=== PATIENT | female | born 1995 | race Caucasian/White ===

== ENCOUNTER 2018-12-13 10:15 | Emergency (ER) | payer MEDICAID ==
[~2018-12-13] VITALS: Ht 149.9 cm; Wt 43.2 kg
[2018-12-13 10:34] VITALS: BP 115/55; PULSE 112; RESP 18; Ht 149.9 cm; Wt 43.2 kg
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
[2018-12-13] MEDS ORDERED: TRIA15OI9 TOP (12:03)
== END 2018-12-13 12:29 | disposition home or self-care (01) ==
LOC: EEVIPCON 10:15 → FTE 10:15
DX: O99.713 Diseases of the skin and subcutaneous tissue complicating pregnancy, third trimester (principal); L98.9 Disorder of the skin and subcutaneous tissue, unspecified; Z3A.33 33 weeks gestation of pregnancy; Z59.0 Homelessness; Z91.410 Personal history of adult physical and sexual abuse
CPT/HCPCS: 99283

== ENCOUNTER 2018-12-22 14:34 | Outpatient (CLI) | payer MEDICAID ==
[~2018-12-22] VITALS: Ht 152.4 cm; Wt 43.1 kg
[~2018-12-22 14:34] MED LIST: TRIA15OI9 TOP
[2018-12-22 15:11] VITALS: BP 94/54; PULSE 88; RESP 18; Ht 152.4 cm; Wt 43.1 kg
[2018-12-22] MEDS ORDERED: PNV11TAB PO (15:13)
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
== END 2018-12-22 17:20 | disposition home or self-care (01) ==
LOC: L-D 14:34 → OBT 14:34
PROVIDERS: ATTEND Obstetrics & Gynecology
DX: O62.9 Abnormality of forces of labor, unspecified (principal); Z3A.32 32 weeks gestation of pregnancy
CPT/HCPCS: 76815; 76817; 76818; 81001; 82731; 87086; Z7500; G0463